=== PATIENT | female | born 1935 | race Caucasian/White ===

== ENCOUNTER 2017-02-16 20:05 | Inpatient (IN) | payer MEDICARE ==
[~2017-02-16] VITALS: Ht 154.9 cm; Wt 82.0 kg
[~2017-02-16 20:05] MED LIST: AMLO5TAB2 PO; ASPI-496 PO; ASPI-515 PO; ASPI325T17 PO; ATOR40TA78 PO; DIVA125C PO; DOCU-131 PO; FLUR15CA3 PO; HEPA50002 SQ; HYDR25TA11 PO; LABE5VIA13 IV; LISI-170 PO; LISI-466 PO; METO-93 PO; NITR0.4T SL; OMEP-110 PO; OMEP20TA62 PO; THYR30TA PO; TRAZ50TA18 PO
[2017-02-16] MEDS ORDERED: DILTIAZEM 125 MG in DEXTROSE 5% 100 ML IV SCH (20:18)
[2017-02-16] MEDS ORDERED: SODIUM CHLORIDE FLUSH 10ML SYR IVF ONE (20:30)
[2017-02-16 20:51] LABS: BASOPHILS # (AUTO) 0.08 x10^3/uL (0-0.1); BASOPHILS % (AUTO) 1 % (0-1); EOSINOPHILS # (AUTO) 0.17 x10^3/uL (0-0.4); EOSINOPHILS % (AUTO) 2 % (1-7); LYMPHOCYTES # (AUTO) 3.03 x10^3/uL (1-3.4); LYMPHOCYTES % (AUTO) 27 % (22-44); MD NO; MEAN CORPUSCULAR HEMOGLOBIN 31.7 pg (27.0-34.8); MEAN CORPUSCULAR HGB CONC 32.7 g/dL (32.4-35.8); MEAN PLATELET VOLUME 9.3 fL (7.4-10.4); MONOCYTES # (AUTO) 0.72 x10^3/uL (0.2-0.8); MONOCYTES % (AUTO) 7 % (2-9); NEUTROPHILS % (AUTO) 64 % (42-75); PLATELET COUNT 207 x10^3/uL (130-400); RED BLOOD COUNT 3.69 x10^6/uL (3.82-5.3); RED CELL DISTRIBUTION WIDTH 14.5 % (9.6-15.2)
[2017-02-16 20:59] LABS: INTERNATIONAL NORMALIZED RATIO 1.04 (0.93-1.1); PROTHROMBIN TIME 10.8 Seconds (9.6-11.5)
[2017-02-16] MEDS ORDERED: ENOXAPARIN 80 MG/0.8 ML SQ ONE (21:00)
[2017-02-16 21:02] LABS: ALBUMIN 3.2 g/dL (3.4-5.0); ANION GAP 6 mmol/L (5-15); CALCIUM 8.8 mg/dL (8.5-10.1); CHLORIDE 107 mmol/L (98-107); CREATININE 1.16 mg/dL (0.55-1.02)
[2017-02-16] MEDS ORDERED: FURO20TA3 PO (21:20)
[2017-02-16] MEDS ORDERED: METO50TA82 PO (21:20)
[2017-02-16] MEDS ORDERED: SODIUM CHLORIDE FLUSH 10ML SYR IVF PRN (21:30)
[2017-02-16] MEDS ORDERED: ACETAMINOPHEN 325 MG TABLET PO PRN (22:00)
[2017-02-16] MEDS ORDERED: ONDANSETRON 2MG/ML, 2ML IVPush PRN (22:00)
[2017-02-16] MEDS: ENOXAPARIN 80 MG/0.8 ML SQ SCH ×2 (22:00→23:53)
[2017-02-16] MEDS ORDERED: TEMAZEPAM 15 MG CAPSULE PO PRN (22:00)
[2017-02-16] MEDS ORDERED: MAGNESIUM SULFATE PMX 2GM/50ML 50 ML IV ONE (22:00)
[2017-02-16] MEDS ORDERED: DILTIAZEM CD 180 MG CAP.ER.24H PO SCH (22:00)
[2017-02-16] MEDS ORDERED: ENOXAPARIN 80 MG/0.8 ML ONE (22:37)
[2017-02-16 23:26] VITALS: BP 115/71
[2017-02-16] MEDS: TRAZODONE 50MG TABLET PO PRN (23:53)
[2017-02-17 00:47] VITALS: BP 134/77
[2017-02-17 06:05] LABS: BASOPHILS # (AUTO) 0.04 x10^3/uL (0-0.1); BASOPHILS % (AUTO) 0 % (0-1); EOSINOPHILS # (AUTO) 0.23 x10^3/uL (0-0.4); EOSINOPHILS % (AUTO) 2 % (1-7); LYMPHOCYTES # (AUTO) 3.06 x10^3/uL (1-3.4); LYMPHOCYTES % (AUTO) 32 % (22-44); MD NO; MEAN CORPUSCULAR HEMOGLOBIN 32.5 pg (27.0-34.8); MEAN CORPUSCULAR HGB CONC 33.5 g/dL (32.4-35.8); MEAN CORPUSCULAR VOLUME 96.8 fL (80-100); MEAN PLATELET VOLUME 9.9 fL (7.4-10.4); MONOCYTES % (AUTO) 7 % (2-9); NEUTROPHILS # (AUTO) 5.67 x10^3/uL (1.8-6.8); NEUTROPHILS % (AUTO) 59 % (42-75); PLATELET COUNT 177 x10^3/uL (130-400); RED BLOOD COUNT 3.31 x10^6/uL (3.82-5.3); RED CELL DISTRIBUTION WIDTH 14.3 % (9.6-15.2)
[2017-02-17 06:27] LABS: TROPONIN I < 0.015 ng/mL (0.000-0.045)
[2017-02-17 06:36] LABS: ANION GAP 7 mmol/L (5-15); CALCIUM 8.6 mg/dL (8.5-10.1); CHLORIDE 107 mmol/L (98-107)
[2017-02-17 06:40] LABS: CHOL/HDL RATIO 2.4; CHOLESTEROL, TOTAL 93 mg/dL (140-239); CREATININE 1.19 mg/dL (0.55-1.02); HDL CHOL % 42 % (28-40); HDL CHOLESTEROL (DIRECT) 39 mg/dL (40-60); LDL CHOLESTEROL,CALCULATED 29 mg/dL (54-169); LDL/HDL RATIO 0.7 (0.5-3.0); TRIGLYCERIDES 124 mg/dL (50-200); VLDL CHOLESTEROL 25 mg/dL (0-25)
[2017-02-17] MEDS: FUROSEMIDE 40 MG/4 ML IV SCH ×2 (08:52→18:38)
[2017-02-17] MEDS: METOPROLOL TARTRATE 25 MG TABLET PO SCH ×2 (08:52→18:38)
[2017-02-17] MEDS: DIVALPROEX 125 MG CAP.SPRINK PO SCH ×2 (08:56→22:32)
[2017-02-17] MEDS: THYROID 30 MG TABLET PO SCH (08:56)
[2017-02-17] MEDS ORDERED: FLU VACC QS2017-18 (36MOS+) UP/PF 0.5 ML IM-VACC ONE (09:00)
[2017-02-17] MEDS: DILTIAZEM 125 MG in SODIUM CHLORIDE 0.9% 100 ML IV SCH ×2 (09:18→19:55)
[2017-02-17 09:22] VITALS: BP 135/71
[2017-02-17] MEDS: ALBUTEROL SULFATE 2.5 MG/3 ML NPPB PRN ×2 (10:41→20:47)
[2017-02-17 15:27] VITALS: BP 99/65
[2017-02-17] MEDS ORDERED: OMNIPAQUE 350 MG/ML, 100ML BOTTLE ONE (18:10)
[2017-02-17 18:54] VITALS: BP 122/83
[2017-02-17 22:31] VITALS: BP 126/59
[2017-02-17] MEDS: TRAZODONE 50MG TABLET PO PRN (22:32)
[2017-02-18 00:31] VITALS: BP 117/74
[2017-02-18] MEDS: ENOXAPARIN 100 MG/ML SQ SCH ×2 (00:47→23:42)
[2017-02-18] MEDS: METOPROLOL TARTRATE 25 MG TABLET PO SCH ×2 (06:22→18:34)
[2017-02-18] MEDS: FUROSEMIDE 40 MG/4 ML IV SCH ×3 (07:26→21:15)
[2017-02-18] MEDS: DIVALPROEX 125 MG CAP.SPRINK PO SCH ×2 (07:26→21:08)
[2017-02-18] MEDS: THYROID 30 MG TABLET PO SCH (07:27)
[2017-02-18 07:34] VITALS: BP 109/76
[2017-02-18] MEDS: DILTIAZEM 125 MG in SODIUM CHLORIDE 0.9% 100 ML IV SCH ×3 (08:20→23:37)
[2017-02-18 08:30] VITALS: BP 111/79
[2017-02-18] MEDS ORDERED: MAALOX/HYOSCYAMINE/LIDOCAINE 45 ML BTL PO ONE (09:30)
[2017-02-18 09:59] LABS: ANION GAP 8 mmol/L (5-15); CALCIUM 8.4 mg/dL (8.5-10.1); CHLORIDE 103 mmol/L (98-107); CREATININE 1.36 mg/dL (0.55-1.02)
[2017-02-18 10:00] LABS: TROPONIN I < 0.015 ng/mL (0.000-0.045)
[2017-02-18] MEDS ORDERED: POLYETHYLENE GLYCOL 17 GM PACKET ONE (11:18)
[2017-02-18] MEDS ORDERED: SENNA/DOCUSATE TABLET ONE (11:19)
[2017-02-18] MEDS: SENNA/DOCUSATE TABLET PO SCH (11:22)
[2017-02-18] MEDS ORDERED: POLYETHYLENE GLYCOL 17 GM PACKET PO PRN (11:30)
[2017-02-18] MEDS ORDERED: BISACODYL 10 MG SUPP PR PRN (11:30)
[2017-02-18 12:12] LABS: ALANINE AMINOTRANSFERASE 19 U/L (12-78); ALBUMIN 3.2 g/dL (3.4-5.0)
[2017-02-18 12:14] LABS: ALKALINE PHOSPHATASE 88 U/L (45-117); BILIRUBIN,TOTAL 0.4 mg/dL (0.2-1.0)
[2017-02-18 12:18] LABS: BILIRUBIN, DIRECT < 0.1 mg/dL (0.1-0.2); BILIRUBIN,INDIRECT 0.3 mg/dL (0.0-2.0)
[2017-02-18 14:07] VITALS: BP 108/64
[2017-02-18 19:05] VITALS: BP 114/65
[2017-02-18] MEDS: FAMOTIDINE 20 MG TABLET PO SCH (21:08)
[2017-02-18] MEDS: TRAZODONE 50MG TABLET PO PRN (21:24)
[2017-02-19 03:55] VITALS: BP 120/81
[2017-02-19 06:18] LABS: BASOPHILS # (AUTO) 0.04 x10^3/uL (0-0.1); BASOPHILS % (AUTO) 0 % (0-1); EOSINOPHILS # (AUTO) 0.18 x10^3/uL (0-0.4); EOSINOPHILS % (AUTO) 2 % (1-7); LYMPHOCYTES # (AUTO) 2.59 x10^3/uL (1-3.4); LYMPHOCYTES % (AUTO) 27 % (22-44); MD NO; MEAN CORPUSCULAR HEMOGLOBIN 32.4 pg (27.0-34.8); MEAN CORPUSCULAR HGB CONC 33.3 g/dL (32.4-35.8); MEAN CORPUSCULAR VOLUME 97.2 fL (80-100); MEAN PLATELET VOLUME 9.5 fL (7.4-10.4); MONOCYTES # (AUTO) 0.65 x10^3/uL (0.2-0.8); MONOCYTES % (AUTO) 7 % (2-9); NEUTROPHILS # (AUTO) 6.09 x10^3/uL (1.8-6.8); NEUTROPHILS % (AUTO) 64 % (42-75); PLATELET COUNT 196 x10^3/uL (130-400); RED BLOOD COUNT 3.55 x10^6/uL (3.82-5.3); RED CELL DISTRIBUTION WIDTH 14.2 % (9.6-15.2)
[2017-02-19 06:19] LABS: ALBUMIN 3.1 g/dL (3.4-5.0); ANION GAP 6 mmol/L (5-15); CALCIUM 8.4 mg/dL (8.5-10.1); CHLORIDE 102 mmol/L (98-107)
[2017-02-19 06:22] VITALS: BP 137/75
[2017-02-19 06:22] LABS: ALANINE AMINOTRANSFERASE 13 U/L (12-78); ALKALINE PHOSPHATASE 84 U/L (45-117); BILIRUBIN,TOTAL 0.7 mg/dL (0.2-1.0); CREATININE 1.39 mg/dL (0.55-1.02); TOTAL PROTEIN 6.9 g/dL (6.4-8.2)
[2017-02-19] MEDS: METOPROLOL TARTRATE 25 MG TABLET PO SCH ×3 (06:25→20:30)
[2017-02-19] MEDS: FUROSEMIDE 40 MG/4 ML IV SCH ×3 (06:26→20:29)
[2017-02-19] MEDS: THYROID 30 MG TABLET PO SCH (07:33)
[2017-02-19] MEDS: FAMOTIDINE 20 MG TABLET PO SCH ×2 (07:33→20:30)
[2017-02-19] MEDS: DIVALPROEX 125 MG CAP.SPRINK PO SCH ×2 (07:33→20:30)
[2017-02-19] MEDS: SENNA/DOCUSATE TABLET PO SCH (07:33)
[2017-02-19 08:10] VITALS: BP 120/74
[2017-02-19] MEDS: DILTIAZEM 125 MG in SODIUM CHLORIDE 0.9% 100 ML IV SCH (12:54)
[2017-02-19 13:43] VITALS: BP 146/79
[2017-02-19] MEDS: ALBUTEROL SULFATE 2.5 MG/3 ML NPPB PRN (14:00)
[2017-02-19] MEDS: SUCRALFATE 1 GM/10 ML UDC PO SCH ×2 (17:30→20:30)
[2017-02-19] MEDS ORDERED: MAALOX/HYOSCYAMINE/LIDOCAINE 45 ML BTL PO PRN (17:30)
[2017-02-19 19:50] VITALS: BP 118/78
[2017-02-19] MEDS: TRAZODONE 50MG TABLET PO PRN (20:30)
[2017-02-20] MEDS: ENOXAPARIN 100 MG/ML SQ SCH (00:37)
[2017-02-20] MEDS: DILTIAZEM 125 MG in SODIUM CHLORIDE 0.9% 100 ML IV SCH (00:38)
[2017-02-20 06:20] LABS: BASOPHILS # (AUTO) 0.01 x10^3/uL (0-0.1); BASOPHILS % (AUTO) 0 % (0-1); EOSINOPHILS % (AUTO) 0 % (1-7); LYMPHOCYTES # (AUTO) 1.05 x10^3/uL (1-3.4); LYMPHOCYTES % (AUTO) 12 % (22-44); MD NO; MEAN CORPUSCULAR HEMOGLOBIN 32.4 pg (27.0-34.8); MEAN CORPUSCULAR HGB CONC 33.1 g/dL (32.4-35.8); MEAN CORPUSCULAR VOLUME 97.7 fL (80-100); MEAN PLATELET VOLUME 9.4 fL (7.4-10.4); MONOCYTES # (AUTO) 0.25 x10^3/uL (0.2-0.8); MONOCYTES % (AUTO) 3 % (2-9); NEUTROPHILS # (AUTO) 7.21 x10^3/uL (1.8-6.8); NEUTROPHILS % (AUTO) 85 % (42-75); PLATELET COUNT 191 x10^3/uL (130-400); RED BLOOD COUNT 3.49 x10^6/uL (3.82-5.3); RED CELL DISTRIBUTION WIDTH 14.3 % (9.6-15.2)
[2017-02-20 06:27] LABS: CHLORIDE 103 mmol/L (98-107)
[2017-02-20 06:33] LABS: ALANINE AMINOTRANSFERASE 13 U/L (12-78); ALKALINE PHOSPHATASE 84 U/L (45-117); ANION GAP 7 mmol/L (5-15); BILIRUBIN,TOTAL 0.3 mg/dL (0.2-1.0); CALCIUM 8.4 mg/dL (8.5-10.1); CREATININE 1.37 mg/dL (0.55-1.02); TOTAL PROTEIN 6.8 g/dL (6.4-8.2)
[2017-02-20] MEDS: FUROSEMIDE 40 MG/4 ML IV SCH ×3 (06:39→21:33)
[2017-02-20 08:32] VITALS: BP 119/68
[2017-02-20] MEDS: DIGOXIN 0.125 MG TABLET PO SCH (08:45)
[2017-02-20] MEDS: APIXABAN 5 MG TABLET PO SCH ×2 (08:45→21:22)
[2017-02-20] MEDS: SUCRALFATE 1 GM/10 ML UDC PO SCH ×4 (08:46→21:41)
[2017-02-20] MEDS: FAMOTIDINE 20 MG TABLET PO SCH ×2 (08:48→21:22)
[2017-02-20] MEDS: THYROID 30 MG TABLET PO SCH (08:48)
[2017-02-20] MEDS: DIVALPROEX 125 MG CAP.SPRINK PO SCH ×2 (08:48→21:22)
[2017-02-20] MEDS: SENNA/DOCUSATE TABLET PO SCH (08:48)
[2017-02-20] MEDS: METOPROLOL TARTRATE 25 MG TABLET PO SCH ×3 (08:49→21:23)
[2017-02-20 13:40] VITALS: BP 120/77
[2017-02-20] MEDS: ALBUTEROL SULFATE 2.5 MG/3 ML NPPB PRN (19:40)
[2017-02-20 21:18] VITALS: BP 144/75
[2017-02-20] MEDS: VERAPAMIL 2.5 MG/ML, 2ML IVPush PRN (21:23)
[2017-02-21 02:00] VITALS: BP 131/71
[2017-02-21] MEDS: FUROSEMIDE 40 MG/4 ML IV SCH ×3 (05:22→22:54)
[2017-02-21] MEDS: ALBUTEROL SULFATE 2.5 MG/3 ML NPPB PRN ×3 (05:36→23:28)
[2017-02-21 06:08] LABS: ANION GAP 7 mmol/L (5-15); CALCIUM 8.8 mg/dL (8.5-10.1); CHLORIDE 104 mmol/L (98-107); CREATININE 1.22 mg/dL (0.55-1.02)
[2017-02-21 06:17] LABS: BASOPHILS # (AUTO) 0.04 x10^3/uL (0-0.1); BASOPHILS % (AUTO) 0 % (0-1); EOSINOPHILS # (AUTO) 0.02 x10^3/uL (0-0.4); EOSINOPHILS % (AUTO) 0 % (1-7); LYMPHOCYTES # (AUTO) 2.78 x10^3/uL (1-3.4); LYMPHOCYTES % (AUTO) 19 % (22-44); MD NO; MEAN CORPUSCULAR HEMOGLOBIN 32.3 pg (27.0-34.8); MEAN CORPUSCULAR HGB CONC 33.3 g/dL (32.4-35.8); MEAN CORPUSCULAR VOLUME 97.1 fL (80-100); MEAN PLATELET VOLUME 9.4 fL (7.4-10.4); MONOCYTES # (AUTO) 0.85 x10^3/uL (0.2-0.8); MONOCYTES % (AUTO) 6 % (2-9); NEUTROPHILS # (AUTO) 10.96 x10^3/uL (1.8-6.8); NEUTROPHILS % (AUTO) 75 % (42-75); PLATELET COUNT 207 x10^3/uL (130-400); RED BLOOD COUNT 3.58 x10^6/uL (3.82-5.3); RED CELL DISTRIBUTION WIDTH 14.2 % (9.6-15.2)
[2017-02-21] MEDS: SENNA/DOCUSATE TABLET PO SCH (07:39)
[2017-02-21 08:11] VITALS: BP 145/86
[2017-02-21] MEDS: DIVALPROEX 125 MG CAP.SPRINK PO SCH ×2 (08:25→22:56)
[2017-02-21] MEDS: METOPROLOL TARTRATE 25 MG TABLET PO SCH (08:25)
[2017-02-21] MEDS: APIXABAN 5 MG TABLET PO SCH ×2 (08:25→22:55)
[2017-02-21] MEDS: THYROID 30 MG TABLET PO SCH (08:25)
[2017-02-21] MEDS: SUCRALFATE 1 GM/10 ML UDC PO SCH ×4 (08:25→22:55)
[2017-02-21] MEDS: DIGOXIN 0.125 MG TABLET PO SCH (08:26)
[2017-02-21] MEDS: FAMOTIDINE 20 MG TABLET PO SCH ×2 (08:26→22:55)
[2017-02-21] MEDS: VERAPAMIL 2.5 MG/ML, 2ML IVPush PRN ×2 (08:26→18:20)
[2017-02-21] MEDS ORDERED: DIGOXIN 0.25 MG/ML, 2ML IVPush ONE (09:00)
[2017-02-21 09:35] VITALS: BP 123/72
[2017-02-21 12:28] VITALS: BP 139/84
[2017-02-21] MEDS: VERAPAMIL 40MG TABLET PO SCH ×2 (15:45→21:00)
[2017-02-21] MEDS ORDERED: METOPROLOL TARTRATE 25 MG TABLET PO SCH (21:00)
[2017-02-21 21:27] VITALS: BP 126/75
[2017-02-21] MEDS ORDERED: VERAPAMIL 80MG TABLET PO SCH (23:07)
[2017-02-22 01:38] VITALS: BP 130/76
[2017-02-22] MEDS: FUROSEMIDE 40 MG/4 ML IV SCH ×3 (06:06→22:26)
[2017-02-22] MEDS: SUCRALFATE 1 GM/10 ML UDC PO SCH ×4 (06:10→22:24)
[2017-02-22] MEDS: ALBUTEROL SULFATE 2.5 MG/3 ML NPPB PRN (06:25)
[2017-02-22 07:43] VITALS: BP 160/98
[2017-02-22] MEDS: THYROID 30 MG TABLET PO SCH (09:51)
[2017-02-22] MEDS: METOPROLOL TARTRATE 50 MG TABLET PO SCH ×2 (09:51→17:56)
[2017-02-22] MEDS: DIVALPROEX 125 MG CAP.SPRINK PO SCH ×2 (09:52→22:25)
[2017-02-22] MEDS: DIGOXIN 0.125 MG TABLET PO SCH (09:52)
[2017-02-22] MEDS: APIXABAN 5 MG TABLET PO SCH ×2 (09:52→22:25)
[2017-02-22] MEDS: FAMOTIDINE 20 MG TABLET PO SCH ×2 (09:52→22:25)
[2017-02-22] MEDS: SENNA/DOCUSATE TABLET PO SCH (09:52)
[2017-02-22] MEDS ORDERED: VERAPAMIL 40MG TABLET PO SCH (11:00)
[2017-02-22] MEDS: VERAPAMIL 80MG TABLET PO SCH ×3 (12:13→22:25)
[2017-02-22 12:58] VITALS: BP 135/85
[2017-02-22 22:23] VITALS: BP 131/84
[2017-02-23 02:12] VITALS: BP 144/91
[2017-02-23 06:05] VITALS: BP 142/79
[2017-02-23] MEDS: VERAPAMIL 80MG TABLET PO SCH ×4 (06:05→21:02)
[2017-02-23] MEDS: METOPROLOL TARTRATE 50 MG TABLET PO SCH ×2 (06:06→16:34)
[2017-02-23] MEDS: FUROSEMIDE 40 MG/4 ML IV SCH ×3 (06:06→21:13)
[2017-02-23] MEDS ORDERED: ALBUTEROL/IPRATROPIUM 2.5MG/0.5MG, 3 ML ONE (06:33)
[2017-02-23] MEDS: ALBUTEROL SULFATE 2.5 MG/3 ML NPPB PRN ×2 (06:38→21:21)
[2017-02-23 07:13] VITALS: BP 116/73
[2017-02-23] MEDS: SUCRALFATE 1 GM/10 ML UDC PO SCH ×4 (08:11→21:13)
[2017-02-23] MEDS: DIVALPROEX 125 MG CAP.SPRINK PO SCH ×2 (08:13→21:01)
[2017-02-23] MEDS: APIXABAN 5 MG TABLET PO SCH ×2 (08:13→21:01)
[2017-02-23] MEDS: FAMOTIDINE 20 MG TABLET PO SCH ×2 (08:13→21:01)
[2017-02-23] MEDS: SENNA/DOCUSATE TABLET PO SCH (08:13)
[2017-02-23] MEDS: DIGOXIN 0.125 MG TABLET PO SCH (08:13)
[2017-02-23] MEDS: THYROID 30 MG TABLET PO SCH (08:13)
[2017-02-23 09:25] LABS: TROPONIN I < 0.015 ng/mL (0.000-0.045)
[2017-02-23 13:45] VITALS: BP 119/68
[2017-02-23 18:45] VITALS: BP 135/85
[2017-02-23] MEDS: ATORVASTATIN 40 MG TABLET PO SCH (21:01)
[2017-02-24 01:04] VITALS: BP 129/85
[2017-02-24] MEDS: FUROSEMIDE 40 MG/4 ML IV SCH (06:35)
[2017-02-24] MEDS: VERAPAMIL 80MG TABLET PO SCH (06:35)
[2017-02-24] MEDS: METOPROLOL TARTRATE 50 MG TABLET PO SCH ×2 (06:35→16:38)
[2017-02-24 06:59] LABS: BASOPHILS # (AUTO) 0.05 x10^3/uL (0-0.1); BASOPHILS % (AUTO) 0 % (0-1); EOSINOPHILS # (AUTO) 0.14 x10^3/uL (0-0.4); EOSINOPHILS % (AUTO) 1 % (1-7); LYMPHOCYTES # (AUTO) 4.66 x10^3/uL (1-3.4); LYMPHOCYTES % (AUTO) 31 % (22-44); MD NO; MEAN CORPUSCULAR HEMOGLOBIN 32.2 pg (27.0-34.8); MEAN CORPUSCULAR HGB CONC 33.2 g/dL (32.4-35.8); MEAN PLATELET VOLUME 8.7 fL (7.4-10.4); MONOCYTES # (AUTO) 0.94 x10^3/uL (0.2-0.8); MONOCYTES % (AUTO) 6 % (2-9); NEUTROPHILS % (AUTO) 62 % (42-75); PLATELET COUNT 238 x10^3/uL (130-400); RED BLOOD COUNT 4.21 x10^6/uL (3.82-5.3); RED CELL DISTRIBUTION WIDTH 13.4 % (9.6-15.2)
[2017-02-24 07:07] LABS: ANION GAP 9 mmol/L (5-15); CALCIUM 8.5 mg/dL (8.5-10.1); CHLORIDE 98 mmol/L (98-107); CREATININE 1.31 mg/dL (0.55-1.02)
[2017-02-24 07:59] VITALS: BP 124/82
[2017-02-24] MEDS: THYROID 30 MG TABLET PO SCH (09:43)
[2017-02-24] MEDS: SUCRALFATE 1 GM/10 ML UDC PO SCH ×4 (09:43→20:03)
[2017-02-24] MEDS: DIVALPROEX 125 MG CAP.SPRINK PO SCH ×2 (09:44→20:04)
[2017-02-24] MEDS: FAMOTIDINE 20 MG TABLET PO SCH ×2 (09:44→20:04)
[2017-02-24] MEDS: DIGOXIN 0.125 MG TABLET PO SCH (09:44)
[2017-02-24] MEDS: SENNA/DOCUSATE TABLET PO SCH (09:44)
[2017-02-24] MEDS: APIXABAN 5 MG TABLET PO SCH ×2 (09:44→20:03)
[2017-02-24] MEDS: ALBUTEROL SULFATE 2.5 MG/3 ML NPPB PRN ×2 (10:01→23:55)
[2017-02-24] MEDS ORDERED: VERAPAMIL 80MG TABLET ONE ×2 (16:30→20:10)
[2017-02-24] MEDS: POTASSIUM CHLORIDE 20 MEQ TAB.ER.PRT PO SCH (16:35)
[2017-02-24] MEDS: VERAPAMIL 40MG TABLET PO SCH ×2 (16:38→20:15)
[2017-02-24 16:51] VITALS: BP 112/71
[2017-02-24 18:53] LABS: MICROSCOPIC AUTO
[2017-02-24] MEDS: ATORVASTATIN 40 MG TABLET PO SCH (20:03)
[2017-02-24 20:16] VITALS: BP 137/66
[2017-02-25 02:08] VITALS: BP 124/75
[2017-02-25 05:07] LABS: BASOPHILS # (AUTO) 0.05 x10^3/uL (0-0.1); BASOPHILS % (AUTO) 0 % (0-1); EOSINOPHILS # (AUTO) 0.16 x10^3/uL (0-0.4); EOSINOPHILS % (AUTO) 1 % (1-7); LYMPHOCYTES # (AUTO) 4.36 x10^3/uL (1-3.4); LYMPHOCYTES % (AUTO) 28 % (22-44); MD NO; MEAN CORPUSCULAR HEMOGLOBIN 31.9 pg (27.0-34.8); MEAN CORPUSCULAR HGB CONC 33.1 g/dL (32.4-35.8); MEAN CORPUSCULAR VOLUME 96.6 fL (80-100); MONOCYTES # (AUTO) 1.06 x10^3/uL (0.2-0.8); MONOCYTES % (AUTO) 7 % (2-9); NEUTROPHILS # (AUTO) 9.79 x10^3/uL (1.8-6.8); NEUTROPHILS % (AUTO) 64 % (42-75); PLATELET COUNT 259 x10^3/uL (130-400); RED BLOOD COUNT 4.46 x10^6/uL (3.82-5.3)
[2017-02-25 05:14] LABS: ALBUMIN 3.2 g/dL (3.4-5.0); ANION GAP 9 mmol/L (5-15); CALCIUM 9.2 mg/dL (8.5-10.1); CHLORIDE 101 mmol/L (98-107); CREATININE 1.41 mg/dL (0.55-1.02)
[2017-02-25] MEDS: METOPROLOL TARTRATE 50 MG TABLET PO SCH ×2 (06:09→16:18)
[2017-02-25 07:22] VITALS: BP 137/77
[2017-02-25] MEDS: THYROID 30 MG TABLET PO SCH (08:43)
[2017-02-25] MEDS: POTASSIUM CHLORIDE 20 MEQ TAB.ER.PRT PO SCH ×2 (08:43→16:17)
[2017-02-25] MEDS: DIVALPROEX 125 MG CAP.SPRINK PO SCH ×2 (08:43→20:28)
[2017-02-25] MEDS: APIXABAN 5 MG TABLET PO SCH ×2 (08:43→20:29)
[2017-02-25] MEDS: SENNA/DOCUSATE TABLET PO SCH (08:44)
[2017-02-25] MEDS: SUCRALFATE 1 GM/10 ML UDC PO SCH ×4 (08:44→20:29)
[2017-02-25] MEDS: FAMOTIDINE 20 MG TABLET PO SCH ×2 (08:44→20:28)
[2017-02-25] MEDS ORDERED: ACETAMINOPHEN 325 MG TABLET PO PRN (11:00)
[2017-02-25] MEDS ORDERED: VERAPAMIL 80MG TABLET ONE ×3 (11:39→20:25)
[2017-02-25] MEDS: VERAPAMIL 40MG TABLET PO SCH ×3 (11:47→20:29)
[2017-02-25 13:46] VITALS: BP 113/64
[2017-02-25 20:21] VITALS: BP 122/65
[2017-02-25] MEDS: ATORVASTATIN 40 MG TABLET PO SCH (20:28)
[2017-02-25] MEDS: ALBUTEROL SULFATE 2.5 MG/3 ML NPPB PRN (21:04)
[2017-02-26 01:07] VITALS: BP 145/70
[2017-02-26 07:03] VITALS: BP 140/73
[2017-02-26] MEDS: SENNA/DOCUSATE TABLET PO SCH (07:41)
[2017-02-26] MEDS: CEFTRIAXONE PMX 1GM/50ML 50 ML IV SCH (07:41)
[2017-02-26] MEDS: METOPROLOL TARTRATE 50 MG TABLET PO SCH ×2 (07:41→16:27)
[2017-02-26] MEDS: THYROID 30 MG TABLET PO SCH (07:41)
[2017-02-26] MEDS: POTASSIUM CHLORIDE 20 MEQ TAB.ER.PRT PO SCH ×2 (07:41→16:26)
[2017-02-26] MEDS: FAMOTIDINE 20 MG TABLET PO SCH ×2 (07:41→20:46)
[2017-02-26] MEDS: SUCRALFATE 1 GM/10 ML UDC PO SCH ×4 (07:41→20:45)
[2017-02-26] MEDS: DIVALPROEX 125 MG CAP.SPRINK PO SCH ×2 (07:42→20:46)
[2017-02-26] MEDS: APIXABAN 5 MG TABLET PO SCH ×2 (07:42→20:46)
[2017-02-26] MEDS ORDERED: VERAPAMIL 80MG TABLET ONE (07:43)
[2017-02-26] MEDS: VERAPAMIL 40MG TABLET PO SCH ×4 (07:44→20:45)
[2017-02-26 13:21] VITALS: BP 138/76
[2017-02-26 18:31] LABS: MICROSCOPIC AUTO
[2017-02-26 18:44] VITALS: BP 137/63
[2017-02-26 18:49] LABS: CULTURE INDICATED? YES
[2017-02-26] MEDS: ATORVASTATIN 40 MG TABLET PO SCH (20:46)
[2017-02-26] MEDS: ALBUTEROL SULFATE 2.5 MG/3 ML NPPB PRN (21:02)
[2017-02-27 01:24] VITALS: BP 108/77
[2017-02-27] MEDS: CEFTRIAXONE PMX 1GM/50ML 50 ML IV SCH (05:32)
[2017-02-27] MEDS: METOPROLOL TARTRATE 50 MG TABLET PO SCH (05:32)
[2017-02-27] MEDS: VERAPAMIL 40MG TABLET PO SCH ×2 (05:32→12:34)
[2017-02-27] MEDS: SUCRALFATE 1 GM/10 ML UDC PO SCH ×2 (05:34→12:34)
[2017-02-27 05:43] LABS: BASOPHILS # (AUTO) 0.05 x10^3/uL (0-0.1); BASOPHILS % (AUTO) 0 % (0-1); EOSINOPHILS # (AUTO) 0.24 x10^3/uL (0-0.4); EOSINOPHILS % (AUTO) 2 % (1-7); LYMPHOCYTES # (AUTO) 4.08 x10^3/uL (1-3.4); LYMPHOCYTES % (AUTO) 29 % (22-44); MD NO; MEAN CORPUSCULAR HEMOGLOBIN 31.7 pg (27.0-34.8); MEAN CORPUSCULAR HGB CONC 32.5 g/dL (32.4-35.8); MEAN CORPUSCULAR VOLUME 97.5 fL (80-100); MEAN PLATELET VOLUME 9.5 fL (7.4-10.4); MONOCYTES # (AUTO) 1.07 x10^3/uL (0.2-0.8); MONOCYTES % (AUTO) 8 % (2-9); NEUTROPHILS # (AUTO) 8.42 x10^3/uL (1.8-6.8); NEUTROPHILS % (AUTO) 61 % (42-75); PLATELET COUNT 206 x10^3/uL (130-400); RED BLOOD COUNT 4.09 x10^6/uL (3.82-5.3)
[2017-02-27 05:44] LABS: CHLORIDE 109 mmol/L (98-107)
[2017-02-27 05:59] LABS: ALANINE AMINOTRANSFERASE 10 U/L (12-78); ALBUMIN 2.9 g/dL (3.4-5.0); ALKALINE PHOSPHATASE 93 U/L (45-117); ANION GAP 5 mmol/L (5-15); BILIRUBIN,TOTAL 0.2 mg/dL (0.2-1.0); CALCIUM 8.5 mg/dL (8.5-10.1); CREATININE 1.26 mg/dL (0.55-1.02); TOTAL PROTEIN 6.4 g/dL (6.4-8.2)
[2017-02-27 08:07] VITALS: BP 102/61
[2017-02-27] MEDS: THYROID 30 MG TABLET PO SCH (08:52)
[2017-02-27] MEDS: APIXABAN 5 MG TABLET PO SCH (08:52)
[2017-02-27] MEDS: POTASSIUM CHLORIDE 20 MEQ TAB.ER.PRT PO SCH (08:52)
[2017-02-27] MEDS: DIVALPROEX 125 MG CAP.SPRINK PO SCH (08:53)
[2017-02-27] MEDS: FAMOTIDINE 20 MG TABLET PO SCH (08:54)
[2017-02-27] MEDS: SENNA/DOCUSATE TABLET PO SCH (08:54)
[2017-02-27] MEDS ORDERED: DOXYCYCLINE 100MG TABLET PO SCH (09:00)
[2017-02-27] MEDS ORDERED: FLUTICASONE/VILANTEROL 200-25MCG/INH INH SCH (09:30)
[2017-02-27] MEDS ORDERED: ACET325T14 PO (10:10)
[2017-02-27] MEDS ORDERED: FLUT1BLS INH (10:10)
[2017-02-27] MEDS ORDERED: DOXY100T10 PO (10:10)
[2017-02-27] MEDS ORDERED: METO50TA82 PO (10:10)
[2017-02-27] MEDS ORDERED: FURO-93 PO (10:10)
[2017-02-27] MEDS ORDERED: ALBU2.5V NPPB (10:10)
[2017-02-27] MEDS ORDERED: APIX5TAB PO (10:10)
[2017-02-27] MEDS ORDERED: FAMO20TA7 PO (10:10)
[2017-02-27] MEDS ORDERED: CEFD300C37 PO (10:10)
[2017-02-27 14:45] VITALS: BP 144/75
== END 2017-02-27 15:30 | DRG 682 ==
LOC: ED 21:26 → SUATTDRO 21:39 → EDIP 22:00 → 5SO 22:46
PROVIDERS: ADMIT Internal Medicine; ATTEND Internal Medicine
PROC: 4A09XMZ Measurement of Respiratory Total Activity, External Approach (ICD-10-PCS; principal; 2017-02-22)
DX: N17.0 Acute kidney failure with tubular necrosis (principal); J96.21 Acute and chronic respiratory failure with hypoxia; E43 Unspecified severe protein-calorie malnutrition; I50.43 Acute on chronic combined systolic (congestive) and diastolic (congestive) heart failure; E87.3 Alkalosis; D68.59 Other primary thrombophilia; E44.1 Mild protein-calorie malnutrition; I48.91 Unspecified atrial fibrillation; I27.20 Pulmonary hypertension, unspecified; I13.0 Hypertensive heart and chronic kidney disease with heart failure and stage 1 through stage 4 chronic kidney disease, or unspecified chronic kidney disease; I48.92 Unspecified atrial flutter; I07.1 Rheumatic tricuspid insufficiency; D64.9 Anemia, unspecified; D72.829 Elevated white blood cell count, unspecified; E03.9 Hypothyroidism, unspecified; Z68.34 Body mass index [BMI] 34.0-34.9, adult; E78.5 Hyperlipidemia, unspecified; E87.6 Hypokalemia; F32.9 Major depressive disorder, single episode, unspecified; F41.9 Anxiety disorder, unspecified; G47.00 Insomnia, unspecified; I34.0 Nonrheumatic mitral (valve) insufficiency; I35.8 Other nonrheumatic aortic valve disorders; J45.909 Unspecified asthma, uncomplicated; J98.4 Other disorders of lung; K21.9 Gastro-esophageal reflux disease without esophagitis; Z66 Do not resuscitate; N18.9 Chronic kidney disease, unspecified; K59.00 Constipation, unspecified; Z79.01 Long term (current) use of anticoagulants; Z87.891 Personal history of nicotine dependence; Z90.13 Acquired absence of bilateral breasts and nipples; Z90.710 Acquired absence of both cervix and uterus; Z99.81 Dependence on supplemental oxygen; Z23 Encounter for immunization
CPT/HCPCS: 36415; 51702; 71045; 71250; 71275; 80048; 80053; 80061; 80076; 80162; 81001; 82040; 83735; 83880; 84443; 84484; 85025; 85610; 85730; 87040; 87086; 90686; 93005; 93306; 94060; 94640; 96365; 96366; 96367; J0696; J1650; J1940; J7613; Q9967; J1160; J3475; J7512

== ENCOUNTER 2017-08-04 15:15 | Inpatient (IN) | payer MEDICARE, MEDICAID ==
[~2017-08-04] VITALS: Ht 153.2 cm; Wt 85.8 kg
[~2017-08-04 15:15] MED LIST changes: +ACET325T14 PO; +ALBU2.5V NPPB; +APIX5TAB PO; +CEFD300C37 PO; +DOXY100T10 PO; +FAMO20TA7 PO; +FLUT1BLS INH; +FURO-93 PO; +FURO20TA3 PO; +METO50TA82 PO
[2017-08-04] MEDS ORDERED: HEPARIN 5,000 UNITS/ML, 1ML SQ SCH (16:30)
[2017-08-04] MEDS ORDERED: VANCOMYCIN PER PHARMACY MC PRN (16:30)
[2017-08-04] MEDS ORDERED: ACETAMINOPHEN 325 MG TABLET PO PRN ×2 (16:30→20:00)
[2017-08-04] MEDS ORDERED: POLYETHYLENE GLYCOL 17 GM PACKET PO PRN (16:30)
[2017-08-04] MEDS ORDERED: DOCUSATE 100 MG CAPSULE PO PRN ×2 (16:30→20:00)
[2017-08-04] MEDS ORDERED: LABETALOL 5MG/ML, 20ML IVPush PRN (16:30)
[2017-08-04] MEDS ORDERED: PLEASE ENTER HEIGHT AND WEIGHT MC SCH ×2 (18:30)
[2017-08-04 19:00] VITALS: BP 166/72
[2017-08-04] MEDS ORDERED: PHARMACOKINETIC MONITORING MC PRN (19:00)
[2017-08-04 19:19] LABS: BASOPHILS # (AUTO) 0.03 x10^3/uL (0-0.1); BASOPHILS % (AUTO) 0 % (0-1); EOSINOPHILS # (AUTO) 0.01 x10^3/uL (0-0.4); EOSINOPHILS % (AUTO) 0 % (1-7); LYMPHOCYTES # (AUTO) 1.39 x10^3/uL (1-3.4); LYMPHOCYTES % (AUTO) 10 % (22-44); MD NO; MEAN CORPUSCULAR HEMOGLOBIN 30.2 pg (27.0-34.8); MEAN CORPUSCULAR HGB CONC 32.9 g/dL (32.4-35.8); MEAN CORPUSCULAR VOLUME 91.9 fL (80-100); MEAN PLATELET VOLUME 8.2 fL (7.4-10.4); MONOCYTES # (AUTO) 0.49 x10^3/uL (0.2-0.8); MONOCYTES % (AUTO) 4 % (2-9); NEUTROPHILS # (AUTO) 12.03 x10^3/uL (1.8-6.8); NEUTROPHILS % (AUTO) 86 % (42-75); PLATELET COUNT 304 x10^3/uL (130-400); RED BLOOD COUNT 4.22 x10^6/uL (3.82-5.3); RED CELL DISTRIBUTION WIDTH 17.9 % (9.6-15.2)
[2017-08-04 19:22] LABS: MICROSCOPIC AUTO
[2017-08-04 19:31] LABS: CULTURE INDICATED? YES
[2017-08-04 19:32] LABS: ANION GAP 5 mmol/L (5-15); CHLORIDE 96 mmol/L (98-107); CREATININE 1.35 mg/dL (0.55-1.02)
[2017-08-04 19:36] LABS: TROPONIN I < 0.015 ng/mL (0.000-0.045)
[2017-08-04] MEDS ORDERED: ALBUTEROL SULFATE 2.5 MG/3 ML ONE (19:36)
[2017-08-04] MEDS: PIPERACILLIN/TAZO/PMX 3.375GM 50 ML IV SCH (19:42)
[2017-08-04] MEDS: ALBUTEROL SULFATE 2.5 MG/3 ML NPPB SCH (19:52)
[2017-08-04] MEDS ORDERED: TRAZODONE 50MG TABLET PO PRN (20:00)
[2017-08-04] MEDS ORDERED: VANCOMYCIN 1,400 MG in SODIUM CHLORIDE 0.9% 250 ML IV ONE (20:00)
[2017-08-04] MEDS ORDERED: ALBUTEROL SULFATE 2.5 MG/3 ML NPPB PRN (20:00)
[2017-08-04] MEDS: NITROGLYCERIN 0.4 MG BOTTLE (25 TABS) SL SCH (20:00)
[2017-08-04] MEDS: DILTIAZEM 125 MG in SODIUM CHLORIDE 0.9% 100 ML IV PRN (20:05)
[2017-08-04] MEDS ORDERED: FUROSEMIDE 20 MG/2 ML IV ONE (21:30)
[2017-08-04] MEDS ORDERED: FUROSEMIDE 20 MG/2 ML ONE (21:34)
[2017-08-04] MEDS: APIXABAN 5 MG TABLET PO SCH (21:35)
[2017-08-04] MEDS: DIVALPROEX 125 MG CAP.SPRINK PO SCH (21:35)
[2017-08-04] MEDS: ATORVASTATIN 40 MG TABLET PO SCH (21:35)
[2017-08-04 23:09] LABS: TROPONIN I < 0.015 ng/mL (0.000-0.045)
[2017-08-05] MEDS: PIPERACILLIN/TAZO/PMX 3.375GM 50 ML IV SCH ×4 (00:53→19:57)
[2017-08-05 04:00] VITALS: BP 163/66
[2017-08-05 04:39] LABS: BASOPHILS # (AUTO) 0.02 x10^3/uL (0-0.1); BASOPHILS % (AUTO) 0 % (0-1); EOSINOPHILS # (AUTO) 0.01 x10^3/uL (0-0.4); EOSINOPHILS % (AUTO) 0 % (1-7); LYMPHOCYTES # (AUTO) 1.26 x10^3/uL (1-3.4); LYMPHOCYTES % (AUTO) 9 % (22-44); MD NO; MEAN CORPUSCULAR HEMOGLOBIN 30.7 pg (27.0-34.8); MEAN CORPUSCULAR HGB CONC 33.7 g/dL (32.4-35.8); MEAN CORPUSCULAR VOLUME 91.2 fL (80-100); MEAN PLATELET VOLUME 8.2 fL (7.4-10.4); MONOCYTES # (AUTO) 0.49 x10^3/uL (0.2-0.8); MONOCYTES % (AUTO) 4 % (2-9); NEUTROPHILS % (AUTO) 87 % (42-75); PLATELET COUNT 279 x10^3/uL (130-400); RED BLOOD COUNT 3.73 x10^6/uL (3.82-5.3); RED CELL DISTRIBUTION WIDTH 17.2 % (9.6-15.2)
[2017-08-05 04:51] LABS: ALBUMIN 2.5 g/dL (3.4-5.0); ANION GAP 5 mmol/L (5-15); CALCIUM 8.1 mg/dL (8.5-10.1); CHLORIDE 96 mmol/L (98-107)
[2017-08-05 04:55] LABS: ALANINE AMINOTRANSFERASE 36 U/L (12-78); ALKALINE PHOSPHATASE 89 U/L (45-117); BILIRUBIN,TOTAL 0.8 mg/dL (0.2-1.0); CREATININE 1.08 mg/dL (0.55-1.02); TOTAL PROTEIN 6.9 g/dL (6.4-8.2)
[2017-08-05] MEDS: OMEPRAZOLE 20 MG CAPSULE.DR PO SCH (06:19)
[2017-08-05] MEDS: THYROID 30 MG TABLET PO SCH (06:19)
[2017-08-05] MEDS: ALBUTEROL SULFATE 2.5 MG/3 ML NPPB SCH ×4 (07:30→19:42)
[2017-08-05] MEDS: FLUTICASONE/VILANTEROL 200-25MCG/INH INH SCH (09:00)
[2017-08-05] MEDS ORDERED: FLUTICASONE/VILANTEROL 200-25MCG/INH INH SCH (09:00)
[2017-08-05] MEDS ORDERED: FUROSEMIDE 20 MG/2 ML IV ONE (12:30)
[2017-08-05] MEDS ORDERED: POTASSIUM CHLORIDE 20 MEQ TAB.ER.PRT PO ONE (13:00)
[2017-08-05] MEDS ORDERED: METOPROLOL TARTRATE 50 MG TABLET ONE (13:01)
[2017-08-05] MEDS ORDERED: POTASSIUM CHLORIDE 20 MEQ TAB.ER.PRT ONE (13:02)
[2017-08-05] MEDS: APIXABAN 5 MG TABLET PO SCH ×2 (13:09→20:48)
[2017-08-05] MEDS: METOPROLOL TARTRATE 50 MG TABLET PO SCH (13:09)
[2017-08-05] MEDS: DIVALPROEX 125 MG CAP.SPRINK PO SCH ×2 (13:09→20:47)
[2017-08-05] MEDS: DILTIAZEM 125 MG in SODIUM CHLORIDE 0.9% 100 ML IV PRN (14:14)
[2017-08-05] MEDS: ENALAPRILAT 1.25 MG/ML, 2ML IVPush PRN ×2 (14:45→18:05)
[2017-08-05] MEDS: ONDANSETRON ODT 4 MG PO PRN (17:20)
[2017-08-05 18:00] VITALS: BP 165/98
[2017-08-05 19:10] VITALS: BP 159/72
[2017-08-05] MEDS: NITROGLYCERIN 0.4 MG BOTTLE (25 TABS) SL SCH (20:00)
[2017-08-05 20:29] VITALS: BP_SYST 132; BP_SYST 154; BP_DIAS 111; BP_DIAS 74
[2017-08-05] MEDS: ATORVASTATIN 40 MG TABLET PO SCH (20:47)
[2017-08-05] MEDS ORDERED: DILTIAZEM 5 MG/ML, 5ML IVPush ONE (21:30)
[2017-08-06] VITALS (7 sets, daily range): BP systolic 122–149; BP diastolic 68–82
[2017-08-06] MEDS: PIPERACILLIN/TAZO/PMX 3.375GM 50 ML IV SCH ×4 (01:06→20:13)
[2017-08-06] MEDS: METOPROLOL TARTRATE 50 MG TABLET PO SCH (01:07)
[2017-08-06] MEDS: ALBUTEROL SULFATE 2.5 MG/3 ML NPPB SCH ×7 (01:43→23:00)
[2017-08-06 05:32] LABS: ALANINE AMINOTRANSFERASE 32 U/L (12-78); ALBUMIN 2.4 g/dL (3.4-5.0); ANION GAP 1 mmol/L (5-15); CALCIUM 8.8 mg/dL (8.5-10.1); CHLORIDE 96 mmol/L (98-107)
[2017-08-06 05:34] LABS: ALKALINE PHOSPHATASE 89 U/L (45-117); BILIRUBIN,TOTAL 0.5 mg/dL (0.2-1.0); CREATININE 1.02 mg/dL (0.55-1.02); TOTAL PROTEIN 7.3 g/dL (6.4-8.2)
[2017-08-06 05:35] LABS: BASOPHILS # (AUTO) 0.03 x10^3/uL (0-0.1); BASOPHILS % (AUTO) 0 % (0-1); EOSINOPHILS # (AUTO) 0.05 x10^3/uL (0-0.4); EOSINOPHILS % (AUTO) 0 % (1-7); LYMPHOCYTES # (AUTO) 1.11 x10^3/uL (1-3.4); LYMPHOCYTES % (AUTO) 8 % (22-44); MD NO; MEAN CORPUSCULAR HEMOGLOBIN 30.8 pg (27.0-34.8); MEAN CORPUSCULAR HGB CONC 33.4 g/dL (32.4-35.8); MEAN CORPUSCULAR VOLUME 92.2 fL (80-100); MONOCYTES # (AUTO) 0.42 x10^3/uL (0.2-0.8); MONOCYTES % (AUTO) 3 % (2-9); NEUTROPHILS # (AUTO) 11.78 x10^3/uL (1.8-6.8); NEUTROPHILS % (AUTO) 88 % (42-75); PLATELET COUNT 275 x10^3/uL (130-400); RED CELL DISTRIBUTION WIDTH 16.8 % (9.6-15.2)
[2017-08-06] MEDS: THYROID 30 MG TABLET PO SCH (06:11)
[2017-08-06] MEDS ORDERED: DILTIAZEM 5 MG/ML, 5ML IVPush ONE ×2 (07:00→08:00)
[2017-08-06] MEDS: OMEPRAZOLE 20 MG CAPSULE.DR PO SCH (07:33)
[2017-08-06] MEDS: FLUTICASONE/VILANTEROL 200-25MCG/INH INH SCH (08:33)
[2017-08-06] MEDS: APIXABAN 5 MG TABLET PO SCH ×2 (08:33→21:40)
[2017-08-06] MEDS: DIVALPROEX 125 MG CAP.SPRINK PO SCH ×2 (08:47→21:39)
[2017-08-06] MEDS ORDERED: METOPROLOL TARTRATE 100 MG TABLET PO SCH ×2 (10:00→22:00)
[2017-08-06] MEDS ORDERED: METOPROLOL TARTRATE 50 MG TABLET PO SCH (13:00)
[2017-08-06] MEDS ORDERED: VANCOMYCIN 1,500 MG in SODIUM CHLORIDE 0.9% 250 ML IV SCH (16:00)
[2017-08-06] MEDS: NITROGLYCERIN 0.4 MG BOTTLE (25 TABS) SL SCH (20:13)
[2017-08-06] MEDS: ATORVASTATIN 40 MG TABLET PO SCH (21:40)
[2017-08-07] VITALS (7 sets, daily range): BP systolic 120–173; BP diastolic 72–104
[2017-08-07] MEDS: PIPERACILLIN/TAZO/PMX 3.375GM 50 ML IV SCH (02:10)
[2017-08-07] MEDS: ALBUTEROL SULFATE 2.5 MG/3 ML NPPB SCH ×6 (02:42→23:00)
[2017-08-07 05:23] LABS: BASOPHILS # (AUTO) 0.02 x10^3/uL (0-0.1); BASOPHILS % (AUTO) 0 % (0-1); EOSINOPHILS % (AUTO) 2 % (1-7); LYMPHOCYTES # (AUTO) 2.29 x10^3/uL (1-3.4); LYMPHOCYTES % (AUTO) 22 % (22-44); MD NO; MEAN CORPUSCULAR HEMOGLOBIN 31.1 pg (27.0-34.8); MEAN CORPUSCULAR HGB CONC 33.4 g/dL (32.4-35.8); MEAN CORPUSCULAR VOLUME 93.3 fL (80-100); MEAN PLATELET VOLUME 8.1 fL (7.4-10.4); MONOCYTES # (AUTO) 0.64 x10^3/uL (0.2-0.8); MONOCYTES % (AUTO) 6 % (2-9); NEUTROPHILS # (AUTO) 7.32 x10^3/uL (1.8-6.8); NEUTROPHILS % (AUTO) 70 % (42-75); PLATELET COUNT 284 x10^3/uL (130-400); RED BLOOD COUNT 3.59 x10^6/uL (3.82-5.3); RED CELL DISTRIBUTION WIDTH 17.4 % (9.6-15.2)
[2017-08-07 05:43] LABS: CHLORIDE 97 mmol/L (98-107)
[2017-08-07 05:51] LABS: ALANINE AMINOTRANSFERASE 25 U/L (12-78); ALBUMIN 2.2 g/dL (3.4-5.0); ALKALINE PHOSPHATASE 76 U/L (45-117); ANION GAP 4 mmol/L (5-15); BILIRUBIN,TOTAL 0.4 mg/dL (0.2-1.0); CREATININE 0.89 mg/dL (0.55-1.02); TOTAL PROTEIN 7.1 g/dL (6.4-8.2)
[2017-08-07] MEDS: THYROID 30 MG TABLET PO SCH (06:52)
[2017-08-07] MEDS: SODIUM BICARBONATE 4.2%, 5ML NPPB SCH ×5 (07:00→23:00)
[2017-08-07] MEDS ORDERED: CEFTRIAXONE 1,000 MG in SODIUM CHLORIDE 0.9% 50 ML IV SCH (07:30)
[2017-08-07 08:45] LABS: CLOSTRIDIUM DIFFICILE ANTIGEN NEGATIVE; CLOSTRIDIUM DIFFICILE TOXIN NEGATIVE (Negative)
[2017-08-07] MEDS ORDERED: DILTIAZEM 60 MG TABLET PO SCH ×2 (09:00→23:18)
[2017-08-07] MEDS: FLUTICASONE/VILANTEROL 200-25MCG/INH INH SCH (09:34)
[2017-08-07] MEDS: DIVALPROEX 125 MG CAP.SPRINK PO SCH ×2 (09:35→22:04)
[2017-08-07] MEDS: APIXABAN 5 MG TABLET PO SCH ×2 (09:35→22:04)
[2017-08-07] MEDS: METOPROLOL TARTRATE 100 MG TABLET PO SCH ×2 (09:35→22:04)
[2017-08-07] MEDS: OMEPRAZOLE 20 MG CAPSULE.DR PO SCH (09:35)
[2017-08-07] MEDS: CEFTRIAXONE 1,000 MG in SODIUM CHLORIDE 0.9% 50 ML IV SCH (09:49)
[2017-08-07] MEDS: DOXYCYCLINE 100 MG in DEXTROSE 5% 250 ML IV SCH ×2 (11:41→23:31)
[2017-08-07] MEDS ORDERED: METOPROLOL 1 MG/ML, 5ML IVPush PRN (12:00)
[2017-08-07] MEDS ORDERED: DILTIAZEM 60 MG TABLET PO ONE (12:00)
[2017-08-07] MEDS: ONDANSETRON ODT 4 MG PO PRN (15:42)
[2017-08-07] MEDS: NITROGLYCERIN 0.4 MG BOTTLE (25 TABS) SL SCH (22:04)
[2017-08-07] MEDS: ATORVASTATIN 40 MG TABLET PO SCH (22:04)
[2017-08-08] VITALS (7 sets, daily range): BP systolic 141–180; BP diastolic 76–105
[2017-08-08] MEDS ORDERED: DILTIAZEM 5 MG/ML, 5ML IVPush ONE
[2017-08-08] MEDS: ALBUTEROL SULFATE 2.5 MG/3 ML NPPB SCH ×5 (03:00→19:08)
[2017-08-08 05:41] LABS: BASOPHILS # (AUTO) 0.03 x10^3/uL (0-0.1); BASOPHILS % (AUTO) 0 % (0-1); EOSINOPHILS % (AUTO) 1 % (1-7); LYMPHOCYTES # (AUTO) 2.29 x10^3/uL (1-3.4); LYMPHOCYTES % (AUTO) 20 % (22-44); MD NO; MEAN CORPUSCULAR HEMOGLOBIN 29.9 pg (27.0-34.8); MEAN CORPUSCULAR HGB CONC 32.4 g/dL (32.4-35.8); MEAN CORPUSCULAR VOLUME 92.2 fL (80-100); MEAN PLATELET VOLUME 7.9 fL (7.4-10.4); MONOCYTES # (AUTO) 0.71 x10^3/uL (0.2-0.8); MONOCYTES % (AUTO) 6 % (2-9); NEUTROPHILS % (AUTO) 72 % (42-75); PLATELET COUNT 302 x10^3/uL (130-400); RED BLOOD COUNT 3.71 x10^6/uL (3.82-5.3); RED CELL DISTRIBUTION WIDTH 17.1 % (9.6-15.2)
[2017-08-08 05:51] LABS: CALCIUM 8.9 mg/dL (8.5-10.1); CHLORIDE 98 mmol/L (98-107)
[2017-08-08 05:57] LABS: ALANINE AMINOTRANSFERASE 23 U/L (12-78); ALBUMIN 2.3 g/dL (3.4-5.0); ALKALINE PHOSPHATASE 83 U/L (45-117); ANION GAP 5 mmol/L (5-15); BILIRUBIN,TOTAL 0.5 mg/dL (0.2-1.0); CREATININE 0.81 mg/dL (0.55-1.02); TOTAL PROTEIN 7.1 g/dL (6.4-8.2)
[2017-08-08] MEDS: THYROID 30 MG TABLET PO SCH (06:45)
[2017-08-08] MEDS: SODIUM BICARBONATE 4.2%, 5ML NPPB SCH ×5 (07:00→21:00)
[2017-08-08] MEDS: DIVALPROEX 125 MG CAP.SPRINK PO SCH ×2 (09:00→22:17)
[2017-08-08] MEDS: FLUTICASONE/VILANTEROL 200-25MCG/INH INH SCH (09:15)
[2017-08-08] MEDS: OMEPRAZOLE 20 MG CAPSULE.DR PO SCH (09:16)
[2017-08-08] MEDS: DILTIAZEM 60 MG TABLET PO SCH ×2 (09:16→21:58)
[2017-08-08] MEDS: APIXABAN 5 MG TABLET PO SCH ×2 (09:16→22:00)
[2017-08-08] MEDS: METOPROLOL TARTRATE 100 MG TABLET PO SCH ×2 (09:20→22:01)
[2017-08-08] MEDS: CEFTRIAXONE 1,000 MG in SODIUM CHLORIDE 0.9% 50 ML IV SCH (09:53)
[2017-08-08] MEDS: DOXYCYCLINE 100 MG in DEXTROSE 5% 250 ML IV SCH ×2 (11:47→23:36)
[2017-08-08] MEDS: LOPERAMIDE 2 MG CAPSULE PO PRN (15:22)
[2017-08-08] MEDS: LACTOBACILLUS CHEW TABLET PO SCH ×2 (15:22→22:00)
[2017-08-08] MEDS: FUROSEMIDE 20 MG/2 ML IV SCH (17:46)
[2017-08-08] MEDS: NITROGLYCERIN 0.4 MG BOTTLE (25 TABS) SL SCH (19:31)
[2017-08-08] MEDS: ATORVASTATIN 40 MG TABLET PO SCH (22:00)
[2017-08-08] MEDS ORDERED: DIGOXIN 0.25 MG/ML, 2ML ONE (23:26)
[2017-08-08] MEDS ORDERED: DIGOXIN 0.25 MG/ML, 2ML IVPush ONE (23:30)
[2017-08-09] VITALS (7 sets, daily range): BP systolic 119–162; BP diastolic 70–89
[2017-08-09] MEDS: THYROID 30 MG TABLET PO SCH (05:14)
[2017-08-09 05:33] LABS: MEAN CORPUSCULAR HEMOGLOBIN 30.2 pg (27.0-34.8); MEAN CORPUSCULAR HGB CONC 32.6 g/dL (32.4-35.8); MEAN CORPUSCULAR VOLUME 92.7 fL (80-100); MEAN PLATELET VOLUME 7.8 fL (7.4-10.4); PLATELET COUNT 326 x10^3/uL (130-400); RED BLOOD COUNT 3.68 x10^6/uL (3.82-5.3); RED CELL DISTRIBUTION WIDTH 17.1 % (9.6-15.2)
[2017-08-09 05:46] LABS: CHLORIDE 100 mmol/L (98-107)
[2017-08-09 05:54] LABS: ALANINE AMINOTRANSFERASE 21 U/L (12-78); ALBUMIN 2.2 g/dL (3.4-5.0); ALKALINE PHOSPHATASE 94 U/L (45-117); ANION GAP 7 mmol/L (5-15); BILIRUBIN,TOTAL 0.4 mg/dL (0.2-1.0); CALCIUM 8.9 mg/dL (8.5-10.1); TOTAL PROTEIN 6.8 g/dL (6.4-8.2)
[2017-08-09 06:22] LABS: MD YES
[2017-08-09 06:25] LABS: <PLATELET ESTIMATE> ADEQUATE; <PLT MORPHOLOGY> NORMAL PLT MORPH; ANISOCYTOSIS 1+; BASOS#(MANUAL) 0.12 x10^3/uL (0-0.1); BASOS% (MANUAL) 1 % (0-1); EOS#(MANUAL) 0.12 x10^3/uL (0.0-0.4); EOS% (MANUAL) 1 % (1-7); LYMPH#(MANUAL) 2.85 x10^3/uL (1-3.4); LYMPHS% (MANUAL) 23 % (22-44); METAMYELOCYTES# (MANUAL) 0.25 x10^3/uL (0-0); METAMYELOCYTES% (MANUAL) 2 % (0-1); MONOS#(MANUAL) 0.37 x10^3/uL (0.3-2.7); MONOS% (MANUAL) 3 % (2-9); MYELOCYTES# (MANUAL) 0.12 x10^3/uL (0-0); MYELOCYTES% (MANUAL) 1 % (0-0); REACTIVE LYMPHS # (MANUAL) 0.25 x10^3/uL (0-0); REACTIVE LYMPHS % (MANUAL) 2 % (0-0); SEG#(MANUAL) 8.31 x10^3/uL (1.8-6.8); SEGS% (MANUAL) 67 % (42-75)
[2017-08-09] MEDS ORDERED: FUROSEMIDE 20 MG/2 ML IV SCH (07:30)
[2017-08-09] MEDS: SODIUM BICARBONATE 4.2%, 5ML NPPB SCH ×4 (07:45→19:14)
[2017-08-09] MEDS: ALBUTEROL SULFATE 2.5 MG/3 ML NPPB SCH ×4 (07:45→19:13)
[2017-08-09] MEDS: APIXABAN 5 MG TABLET PO SCH ×2 (09:30→21:23)
[2017-08-09] MEDS: OMEPRAZOLE 20 MG CAPSULE.DR PO SCH (09:30)
[2017-08-09] MEDS: DILTIAZEM 60 MG TABLET PO SCH ×2 (09:30→21:24)
[2017-08-09] MEDS: LOPERAMIDE 2 MG CAPSULE PO PRN ×2 (09:30→21:23)
[2017-08-09] MEDS: LACTOBACILLUS CHEW TABLET PO SCH ×3 (09:30→21:24)
[2017-08-09] MEDS: DIGOXIN 0.25 MG TABLET PO SCH (09:30)
[2017-08-09] MEDS: FUROSEMIDE 20 MG/2 ML IV SCH ×2 (09:37→16:32)
[2017-08-09] MEDS: CEFTRIAXONE 1,000 MG in SODIUM CHLORIDE 0.9% 50 ML IV SCH (09:37)
[2017-08-09] MEDS: FLUTICASONE/VILANTEROL 200-25MCG/INH INH SCH (09:37)
[2017-08-09] MEDS: DIVALPROEX 125 MG CAP.SPRINK PO SCH ×2 (10:45→21:25)
[2017-08-09] MEDS: METOPROLOL TARTRATE 100 MG TABLET PO SCH ×2 (10:45→23:36)
[2017-08-09] MEDS: DOXYCYCLINE 100 MG in DEXTROSE 5% 250 ML IV SCH ×2 (11:42→23:38)
[2017-08-09] MEDS ORDERED: OMNIPAQUE 350 MG/ML, 100ML BOTTLE ONE (13:59)
[2017-08-09] MEDS ORDERED: NITROGLYCERIN 0.4 MG BOTTLE (25 TABS) SL PRN (20:05)
[2017-08-09] MEDS: ATORVASTATIN 40 MG TABLET PO SCH (21:23)
[2017-08-10 00:31] VITALS: BP 143/73
[2017-08-10] MEDS: THYROID 30 MG TABLET PO SCH (05:14)
[2017-08-10] MEDS: SODIUM BICARBONATE 4.2%, 5ML NPPB SCH ×2 (06:00→11:00)
[2017-08-10] MEDS: ALBUTEROL SULFATE 2.5 MG/3 ML NPPB SCH ×4 (07:00→20:30)
[2017-08-10 07:45] VITALS: BP 138/81
[2017-08-10] MEDS ORDERED: DILTIAZEM 30 MG TABLET ONE (07:45)
[2017-08-10] MEDS: FUROSEMIDE 20 MG/2 ML IV SCH ×2 (07:50→17:30)
[2017-08-10] MEDS: LACTOBACILLUS CHEW TABLET PO SCH ×3 (07:51→20:49)
[2017-08-10] MEDS: DIVALPROEX 125 MG CAP.SPRINK PO SCH ×2 (07:51→20:49)
[2017-08-10] MEDS: APIXABAN 5 MG TABLET PO SCH ×2 (07:51→20:49)
[2017-08-10] MEDS: OMEPRAZOLE 20 MG CAPSULE.DR PO SCH (07:51)
[2017-08-10] MEDS: DIGOXIN 0.25 MG TABLET PO SCH (07:52)
[2017-08-10] MEDS: DILTIAZEM 60 MG TABLET PO SCH (07:52)
[2017-08-10] MEDS: FLUTICASONE/VILANTEROL 200-25MCG/INH INH SCH (07:54)
[2017-08-10] MEDS: CEFTRIAXONE 1,000 MG in SODIUM CHLORIDE 0.9% 50 ML IV SCH (10:15)
[2017-08-10] MEDS: METOPROLOL TARTRATE 100 MG TABLET PO SCH (10:16)
[2017-08-10] MEDS: DOXYCYCLINE 100 MG in DEXTROSE 5% 250 ML IV SCH ×2 (11:34→23:27)
[2017-08-10] MEDS: LOPERAMIDE 2 MG CAPSULE PO PRN ×2 (11:58→20:49)
[2017-08-10 13:54] VITALS: BP 143/72
[2017-08-10 19:13] VITALS: BP 149/82
[2017-08-10] MEDS: ATORVASTATIN 40 MG TABLET PO SCH (20:49)
[2017-08-11 02:09] VITALS: BP 147/81
[2017-08-11 04:35] LABS: BASOPHILS # (AUTO) 0.05 x10^3/uL (0-0.1); BASOPHILS % (AUTO) 0 % (0-1); EOSINOPHILS # (AUTO) 0.26 x10^3/uL (0-0.4); EOSINOPHILS % (AUTO) 2 % (1-7); LYMPHOCYTES # (AUTO) 3.13 x10^3/uL (1-3.4); LYMPHOCYTES % (AUTO) 20 % (22-44); MD NO; MEAN CORPUSCULAR HEMOGLOBIN 30.3 pg (27.0-34.8); MEAN CORPUSCULAR HGB CONC 32.8 g/dL (32.4-35.8); MEAN CORPUSCULAR VOLUME 92.2 fL (80-100); MEAN PLATELET VOLUME 7.7 fL (7.4-10.4); MONOCYTES # (AUTO) 0.63 x10^3/uL (0.2-0.8); MONOCYTES % (AUTO) 4 % (2-9); NEUTROPHILS # (AUTO) 11.33 x10^3/uL (1.8-6.8); NEUTROPHILS % (AUTO) 74 % (42-75); PLATELET COUNT 431 x10^3/uL (130-400); RED BLOOD COUNT 3.88 x10^6/uL (3.82-5.3); RED CELL DISTRIBUTION WIDTH 16.2 % (9.6-15.2)
[2017-08-11 04:40] LABS: ALBUMIN 2.2 g/dL (3.4-5.0); ANION GAP 6 mmol/L (5-15); CALCIUM 8.8 mg/dL (8.5-10.1); CHLORIDE 100 mmol/L (98-107)
[2017-08-11 04:43] LABS: ALANINE AMINOTRANSFERASE 16 U/L (12-78); ALKALINE PHOSPHATASE 94 U/L (45-117); BILIRUBIN,TOTAL 0.4 mg/dL (0.2-1.0); CREATININE 0.94 mg/dL (0.55-1.02); TOTAL PROTEIN 6.8 g/dL (6.4-8.2)
[2017-08-11] MEDS: THYROID 30 MG TABLET PO SCH (05:15)
[2017-08-11] MEDS: ALBUTEROL SULFATE 2.5 MG/3 ML NPPB SCH ×4 (07:15→19:23)
[2017-08-11 08:16] VITALS: BP 156/80
[2017-08-11] MEDS: FLUTICASONE/VILANTEROL 200-25MCG/INH INH SCH (09:31)
[2017-08-11] MEDS: LACTOBACILLUS CHEW TABLET PO SCH ×3 (09:32→21:27)
[2017-08-11] MEDS: DIGOXIN 0.25 MG TABLET PO SCH (09:32)
[2017-08-11] MEDS: OMEPRAZOLE 20 MG CAPSULE.DR PO SCH (09:33)
[2017-08-11] MEDS: APIXABAN 5 MG TABLET PO SCH ×2 (09:33→21:27)
[2017-08-11] MEDS: DIVALPROEX 125 MG CAP.SPRINK PO SCH ×2 (09:33→21:00)
[2017-08-11] MEDS: FUROSEMIDE 20 MG/2 ML IV SCH ×3 (09:34→17:11)
[2017-08-11 09:36] VITALS: BP 144/80
[2017-08-11] MEDS: POTASSIUM CHLORIDE 20 MEQ TAB.ER.PRT PO SCH ×2 (10:28→17:11)
[2017-08-11] MEDS: METOPROLOL TARTRATE 50 MG TABLET PO SCH ×2 (10:29→17:11)
[2017-08-11] MEDS: CEFTRIAXONE 1,000 MG in SODIUM CHLORIDE 0.9% 50 ML IV SCH (11:15)
[2017-08-11] MEDS: DOXYCYCLINE 100 MG in DEXTROSE 5% 250 ML IV SCH ×2 (12:24→23:33)
[2017-08-11 17:07] VITALS: BP 158/83
[2017-08-11 18:36] VITALS: BP 156/74
[2017-08-11] MEDS: ISOSORBIDE DINITRATE 10 MG TABLET PO SCH (21:27)
[2017-08-11] MEDS: ATORVASTATIN 40 MG TABLET PO SCH (21:28)
[2017-08-11] MEDS: SODIUM CHLORIDE 0.9% 1,000 ML IV SCH (21:29)
[2017-08-12 01:15] VITALS: BP 140/85
[2017-08-12 05:01] LABS: ANION GAP 6 mmol/L (5-15); CALCIUM 8.7 mg/dL (8.5-10.1); CHLORIDE 104 mmol/L (98-107)
[2017-08-12 05:04] LABS: CREATININE 0.84 mg/dL (0.55-1.02)
[2017-08-12 05:05] LABS: BASOPHILS # (AUTO) 0.03 x10^3/uL (0-0.1); BASOPHILS % (AUTO) 0 % (0-1); EOSINOPHILS # (AUTO) 0.21 x10^3/uL (0-0.4); EOSINOPHILS % (AUTO) 1 % (1-7); LYMPHOCYTES # (AUTO) 3.88 x10^3/uL (1-3.4); LYMPHOCYTES % (AUTO) 25 % (22-44); MD NO; MEAN CORPUSCULAR HEMOGLOBIN 31.4 pg (27.0-34.8); MEAN CORPUSCULAR VOLUME 94.9 fL (80-100); MEAN PLATELET VOLUME 7.7 fL (7.4-10.4); MONOCYTES # (AUTO) 0.84 x10^3/uL (0.2-0.8); MONOCYTES % (AUTO) 5 % (2-9); NEUTROPHILS # (AUTO) 10.81 x10^3/uL (1.8-6.8); NEUTROPHILS % (AUTO) 69 % (42-75); PLATELET COUNT 427 x10^3/uL (130-400); RED BLOOD COUNT 3.62 x10^6/uL (3.82-5.3); RED CELL DISTRIBUTION WIDTH 16.8 % (9.6-15.2)
[2017-08-12] MEDS ORDERED: CARVEDILOL 12.5 MG TABLET PO SCH (06:00)
[2017-08-12] MEDS: THYROID 30 MG TABLET PO SCH (06:24)
[2017-08-12] MEDS: ALBUTEROL SULFATE 2.5 MG/3 ML NPPB SCH ×4 (06:53→19:52)
[2017-08-12 07:45] VITALS: BP 130/67
[2017-08-12] MEDS ORDERED: MAGNESIUM SULFATE PMX 2GM/50ML 50 ML IV ONE (08:30)
[2017-08-12] MEDS: FLUTICASONE/VILANTEROL 200-25MCG/INH INH SCH (08:42)
[2017-08-12] MEDS: LACTOBACILLUS CHEW TABLET PO SCH ×3 (08:42→20:55)
[2017-08-12] MEDS: OMEPRAZOLE 20 MG CAPSULE.DR PO SCH (08:43)
[2017-08-12] MEDS: ISOSORBIDE DINITRATE 10 MG TABLET PO SCH (08:43)
[2017-08-12] MEDS: DIGOXIN 0.25 MG TABLET PO SCH (08:43)
[2017-08-12] MEDS: APIXABAN 5 MG TABLET PO SCH ×2 (08:43→20:56)
[2017-08-12] MEDS: FLUCONAZOLE 200 MG/100 ML 100 ML IV SCH (08:44)
[2017-08-12] MEDS: DIVALPROEX 125 MG CAP.SPRINK PO SCH ×2 (08:44→20:56)
[2017-08-12] MEDS: POTASSIUM CHLORIDE 20 MEQ TAB.ER.PRT PO SCH (08:44)
[2017-08-12] MEDS: CEFTRIAXONE 1,000 MG in SODIUM CHLORIDE 0.9% 50 ML IV SCH (10:01)
[2017-08-12] MEDS: DOXYCYCLINE 100 MG in DEXTROSE 5% 250 ML IV SCH (13:01)
[2017-08-12 13:28] VITALS: BP 165/87
[2017-08-12] MEDS: METOPROLOL TARTRATE 50 MG TABLET PO SCH (17:26)
[2017-08-12 19:44] VITALS: BP_SYST 128; BP_SYST 156; BP_DIAS 62; BP_DIAS 85
[2017-08-12] MEDS: ATORVASTATIN 40 MG TABLET PO SCH (20:56)
[2017-08-12] MEDS: SODIUM CHLORIDE 0.9% 1,000 ML IV SCH (21:45)
[2017-08-13] MEDS: DOXYCYCLINE 100 MG in DEXTROSE 5% 250 ML IV SCH ×2 (01:16→14:26)
[2017-08-13 02:09] VITALS: BP 156/92
[2017-08-13] MEDS: METOPROLOL TARTRATE 50 MG TABLET PO SCH ×2 (05:39→17:10)
[2017-08-13] MEDS: THYROID 30 MG TABLET PO SCH (05:39)
[2017-08-13 05:44] LABS: ANION GAP 5 mmol/L (5-15); BASOPHILS # (AUTO) 0.04 x10^3/uL (0-0.1); BASOPHILS % (AUTO) 0 % (0-1); CALCIUM 8.9 mg/dL (8.5-10.1); CHLORIDE 105 mmol/L (98-107); EOSINOPHILS # (AUTO) 0.23 x10^3/uL (0-0.4); EOSINOPHILS % (AUTO) 1 % (1-7); LYMPHOCYTES # (AUTO) 3.15 x10^3/uL (1-3.4); LYMPHOCYTES % (AUTO) 20 % (22-44); MD NO; MEAN CORPUSCULAR HEMOGLOBIN 31.9 pg (27.0-34.8); MEAN CORPUSCULAR HGB CONC 33.5 g/dL (32.4-35.8); MEAN CORPUSCULAR VOLUME 95.5 fL (80-100); MEAN PLATELET VOLUME 7.6 fL (7.4-10.4); MONOCYTES # (AUTO) 0.85 x10^3/uL (0.2-0.8); MONOCYTES % (AUTO) 5 % (2-9); NEUTROPHILS # (AUTO) 11.72 x10^3/uL (1.8-6.8); NEUTROPHILS % (AUTO) 73 % (42-75); PLATELET COUNT 434 x10^3/uL (130-400); RED BLOOD COUNT 3.73 x10^6/uL (3.82-5.3); RED CELL DISTRIBUTION WIDTH 16.8 % (9.6-15.2)
[2017-08-13 05:46] LABS: CREATININE 0.76 mg/dL (0.55-1.02)
[2017-08-13] MEDS: ALBUTEROL SULFATE 2.5 MG/3 ML NPPB SCH ×4 (07:00→20:00)
[2017-08-13 07:38] VITALS: BP 165/98
[2017-08-13] MEDS: DIGOXIN 0.25 MG TABLET PO SCH (08:30)
[2017-08-13] MEDS: FLUCONAZOLE 200 MG/100 ML 100 ML IV SCH (08:30)
[2017-08-13] MEDS: DIVALPROEX 125 MG CAP.SPRINK PO SCH ×2 (08:30→20:21)
[2017-08-13] MEDS: LACTOBACILLUS CHEW TABLET PO SCH ×3 (08:30→20:21)
[2017-08-13] MEDS: OMEPRAZOLE 20 MG CAPSULE.DR PO SCH (08:30)
[2017-08-13] MEDS: APIXABAN 5 MG TABLET PO SCH ×2 (08:31→20:22)
[2017-08-13] MEDS: FLUTICASONE/VILANTEROL 200-25MCG/INH INH SCH (08:31)
[2017-08-13] MEDS: CEFTRIAXONE 1,000 MG in SODIUM CHLORIDE 0.9% 50 ML IV SCH (10:45)
[2017-08-13] MEDS ORDERED: SODIUM CHLORIDE NASAL SPRAY 45ML BOTTLE NAS PRN (11:00)
[2017-08-13 13:34] VITALS: BP 163/85
[2017-08-13] MEDS ORDERED: CEFTRIAXONE PMX 2GM/50ML 50 ML IV SCH (14:30)
[2017-08-13] MEDS ORDERED: CEFTRIAXONE PMX 1GM/50ML 50 ML IV ONE (16:00)
[2017-08-13 19:15] VITALS: BP_SYST 171; BP_SYST 172; BP_DIAS 107; BP_DIAS 78
[2017-08-13] MEDS: ATORVASTATIN 40 MG TABLET PO SCH (20:21)
[2017-08-14] MEDS: SODIUM CHLORIDE 0.9% 1,000 ML IV SCH ×2 (00:31→12:39)
[2017-08-14] MEDS: DOXYCYCLINE 100 MG in DEXTROSE 5% 250 ML IV SCH ×2 (00:31→12:38)
[2017-08-14 01:24] VITALS: BP 159/83
[2017-08-14 05:26] LABS: BASOPHILS # (AUTO) 0.15 x10^3/uL (0-0.1); BASOPHILS % (AUTO) 1 % (0-1); EOSINOPHILS % (AUTO) 1 % (1-7); LYMPHOCYTES # (AUTO) 3.65 x10^3/uL (1-3.4); LYMPHOCYTES % (AUTO) 22 % (22-44); MD NO; MEAN CORPUSCULAR HEMOGLOBIN 31.8 pg (27.0-34.8); MEAN CORPUSCULAR HGB CONC 33.4 g/dL (32.4-35.8); MEAN PLATELET VOLUME 7.9 fL (7.4-10.4); MONOCYTES # (AUTO) 1.09 x10^3/uL (0.2-0.8); MONOCYTES % (AUTO) 7 % (2-9); NEUTROPHILS # (AUTO) 11.31 x10^3/uL (1.8-6.8); NEUTROPHILS % (AUTO) 69 % (42-75); PLATELET COUNT 398 x10^3/uL (130-400); RED CELL DISTRIBUTION WIDTH 16.5 % (9.6-15.2)
[2017-08-14 05:51] VITALS: BP 152/80
[2017-08-14] MEDS: THYROID 30 MG TABLET PO SCH (05:55)
[2017-08-14] MEDS: METOPROLOL TARTRATE 50 MG TABLET PO SCH (05:55)
[2017-08-14] MEDS: ALBUTEROL SULFATE 2.5 MG/3 ML NPPB SCH ×3 (07:00→14:57)
[2017-08-14] MEDS: APIXABAN 5 MG TABLET PO SCH (08:04)
[2017-08-14] MEDS: DIGOXIN 0.25 MG TABLET PO SCH (08:04)
[2017-08-14] MEDS: DIVALPROEX 125 MG CAP.SPRINK PO SCH (08:04)
[2017-08-14] MEDS: OMEPRAZOLE 20 MG CAPSULE.DR PO SCH (08:04)
[2017-08-14] MEDS: LACTOBACILLUS CHEW TABLET PO SCH (08:04)
[2017-08-14] MEDS: FLUCONAZOLE 200 MG/100 ML 100 ML IV SCH (08:05)
[2017-08-14] MEDS: FLUTICASONE/VILANTEROL 200-25MCG/INH INH SCH (08:07)
[2017-08-14 08:20] VITALS: BP 186/90
[2017-08-14] MEDS ORDERED: ISOSORBIDE DINITRATE 10 MG TABLET PO SCH (09:00)
[2017-08-14] MEDS ORDERED: CEFTRIAXONE PMX 2GM/50ML 50 ML IV SCH (11:00)
[2017-08-14] MEDS ORDERED: LOPE2CAP PO (12:25)
[2017-08-14] MEDS ORDERED: SODI44SP NAS (12:25)
[2017-08-14] MEDS ORDERED: DIGO250T PO (12:25)
[2017-08-14] MEDS ORDERED: ACID1TAB7 PO (12:25)
[2017-08-14] MEDS ORDERED: HYDR-3341 PO (12:25)
[2017-08-14] MEDS ORDERED: ISOS10TA2 PO (12:25)
[2017-08-14 14:17] VITALS: BP 146/84
== END 2017-08-14 17:50 | DRG 871 ==
LOC: CCU 18:03 → 5SO 08-05 16:45
PROVIDERS: ADMIT Internal Medicine; ATTEND Internal Medicine
DX: A41.9 Sepsis, unspecified organism (principal); E43 Unspecified severe protein-calorie malnutrition; J96.21 Acute and chronic respiratory failure with hypoxia; N17.0 Acute kidney failure with tubular necrosis; J18.1 Lobar pneumonia, unspecified organism; I50.33 Acute on chronic diastolic (congestive) heart failure; D68.59 Other primary thrombophilia; E87.1 Hypo-osmolality and hyponatremia; J44.0 Chronic obstructive pulmonary disease with (acute) lower respiratory infection; J44.1 Chronic obstructive pulmonary disease with (acute) exacerbation; D63.8 Anemia in other chronic diseases classified elsewhere; E78.5 Hyperlipidemia, unspecified; E83.42 Hypomagnesemia; E87.6 Hypokalemia; H91.90 Unspecified hearing loss, unspecified ear; I11.0 Hypertensive heart disease with heart failure; I48.2 Chronic atrial fibrillation; R13.10 Dysphagia, unspecified; K21.9 Gastro-esophageal reflux disease without esophagitis; Z66 Do not resuscitate; Z79.01 Long term (current) use of anticoagulants; Z79.899 Other long term (current) drug therapy; Z87.891 Personal history of nicotine dependence; Z90.13 Acquired absence of bilateral breasts and nipples; Z68.36 Body mass index [BMI] 36.0-36.9, adult
CPT/HCPCS: 36415; 36600; 71045; 74177; 74230; 80048; 80053; 80162; 81001; 82803; 83690; 83735; 83880; 84100; 84145; 84443; 84484; 85025; 87040; 87070; 87081; 87086; 87205; 87324; 93306; 94640; J0696; J2543; J3370; J7060; J7613; Q0162; Q9967; J1160; J1450; J1940; J3475; J7030; J7050

== ENCOUNTER 2018-09-11 01:11 | Inpatient (IN) | payer MEDICARE, MEDICAID ==
[~2018-09-11] VITALS: Ht 172.7 cm; Wt 80.6 kg
[~2018-09-11 01:11] MED LIST changes: +ACID1TAB7 PO; +AMLO-150 PO; -AMLO5TAB2 PO; +DIGO250T PO; -DIVA125C PO; +DIVA125C2 PO; +HYDR-3341 PO; +HYDR-826 PO; -HYDR25TA11 PO; +ISOS10TA2 PO; +LOPE2CAP PO; -NITR0.4T SL; +NITR0.4T41 SL; +SODI44SP NAS; -TRAZ50TA18 PO; +TRAZ50TA66 PO
--- NOTE | 2018-09-11 01:25 | NUR ---
PT BREIF CHANGED AND REPOSITIONED. PT ARRIVES VIA EMS + INCONTINENT OF STOOL.
--- NOTE | 2018-09-11 01:42 | NUR ---
CONTACT [facility] CART PLACED OUTSIDE ROOM D/T HX OF MRSA PER PAPERWORK.
--- NOTE | 2018-09-11 01:53 | NUR ---
HOSPITALIST AT THE BEDSIDE.
[2018-09-11] MEDS ORDERED: morphine SULFATE 10 MG/ML, 1ML IVPush PRN (02:00)
[2018-09-11] MEDS ORDERED: ONDANSETRON 2MG/ML, 2ML IVPush PRN (02:00)
[2018-09-11] MEDS ORDERED: DOCUSATE 100 MG CAPSULE PO PRN (02:00)
[2018-09-11] MEDS ORDERED: CYCLOBENZAPRINE 10 MG TABLET PO PRN (02:00)
[2018-09-11] MEDS ORDERED: ACETAMINOPHEN 325 MG TABLET PO PRN (02:00)
[2018-09-11] MEDS ORDERED: hydrALAzine 20 MG/ML, 1ML IVPush PRN (02:00)
[2018-09-11] MEDS ORDERED: GUAIFENESIN/COD200MG-20MG/10ML LIQUID PO PRN (02:00)
--- NOTE | 2018-09-11 02:03 | NUR ---
GAVE REPORT TO PRABHA SALMERON AND PT BEING TRANSPORTED.
[2018-09-11] MEDS ORDERED: LEVA15HF4 INH (02:14)
[2018-09-11] MEDS ORDERED: TRAZ-96 PO (02:14)
[2018-09-11] MEDS ORDERED: INSU100C SQ-INSULIN (02:14)
[2018-09-11] MEDS ORDERED: IPRA0.2S35 INH (02:14)
[2018-09-11] MEDS ORDERED: LOSA25TA25 PO (02:14)
[2018-09-11] MEDS ORDERED: MAGN400T50 PO (02:14)
[2018-09-11] MEDS ORDERED: ALBU2.5V11 NEB (02:14)
[2018-09-11] MEDS ORDERED: METO50TA82 PO (02:14)
[2018-09-11] MEDS ORDERED: HYDR20VI3 IV (02:14)
[2018-09-11] MEDS ORDERED: ALBUTEROL SULFATE 2.5 MG/3 ML ONE (02:16)
[2018-09-11] MEDS ORDERED: SODIUM CHLORIDE 0.9% 1,000 ML IV ONE (02:30)
[2018-09-11 02:54] VITALS: BP 122/64
[2018-09-11] MEDS ORDERED: ALBUTEROL SULFATE 2.5 MG/3 ML NPPB PRN (03:00)
[2018-09-11] MEDS: HYDROcodone/APAP 5/325 TABLET PO PRN ×2 (03:11→22:40)
[2018-09-11] MEDS: PANTOPROZOLE 40MG TABLET PO SCH (05:40)
[2018-09-11] MEDS: METOPROLOL TARTRATE 50 MG TABLET PO SCH ×2 (05:40→17:13)
[2018-09-11 05:45] LABS: INTERNATIONAL NORMALIZED RATIO 1.04 (0.93-1.1); PROTHROMBIN TIME 10.9 Seconds (9.6-11.5)
[2018-09-11 05:49] LABS: ANION GAP 10 mmol/L (5-15); CALCIUM 7.9 mg/dL (8.5-10.1); CHLORIDE 102 mmol/L (98-107); CREATININE 1.93 mg/dL (0.55-1.02)
[2018-09-11 06:00] LABS: BASOPHILS # (AUTO) 0.04 x10^3/uL (0-0.1); BASOPHILS % (AUTO) 0 % (0-1); EOSINOPHILS # (AUTO) 0.15 x10^3/uL (0-0.4); EOSINOPHILS % (AUTO) 1 % (1-7); LYMPHOCYTES # (AUTO) 2.56 x10^3/uL (1-3.4); LYMPHOCYTES % (AUTO) 24 % (22-44); MD NO; MEAN CORPUSCULAR HEMOGLOBIN 30.6 pg (27.0-34.8); MEAN CORPUSCULAR VOLUME 92.8 fL (80-100); MEAN PLATELET VOLUME 9.4 fL (7.4-10.4); MONOCYTES # (AUTO) 0.52 x10^3/uL (0.2-0.8); MONOCYTES % (AUTO) 5 % (2-9); NEUTROPHILS # (AUTO) 7.42 x10^3/uL (1.8-6.8); NEUTROPHILS % (AUTO) 69 % (42-75); PLATELET COUNT 239 x10^3/uL (130-400); RED BLOOD COUNT 3.94 x10^6/uL (3.82-5.3); RED CELL DISTRIBUTION WIDTH 14.2 % (9.6-15.2)
[2018-09-11] MEDS ORDERED: METOPROLOL TARTRATE 50 MG TABLET PO SCH (06:00)
[2018-09-11 06:55] LABS: HEMOGLOBIN A1C 9.6 % (4.2-6.3)
[2018-09-11] MEDS: INSULIN LISPRO 100 UNITS/ML, PEN SQ-INSULIN SCH ×4 (07:00→21:09)
[2018-09-11 07:53] VITALS: BP 102/67
[2018-09-11] MEDS: ALBUTEROL SULFATE 2.5 MG/3 ML NPPB SCH ×3 (08:45→19:39)
[2018-09-11] MEDS ORDERED: LOSARTAN 25MG TABLET PO SCH (09:00)
[2018-09-11] MEDS: MAGNESIUM OXIDE 400 MG TABLET PO SCH (09:55)
[2018-09-11] MEDS: DIGOXIN 0.25 MG TABLET PO SCH (09:55)
[2018-09-11] MEDS: LOSARTAN 50MG TABLET PO SCH ×2 (09:55→21:08)
[2018-09-11 12:58] VITALS: BP 120/75
[2018-09-11 21:07] VITALS: BP 141/64
[2018-09-11] MEDS: TRAZODONE 50MG TABLET PO SCH (22:40)
[2018-09-12 01:48] VITALS: BP 95/61
[2018-09-12 05:25] LABS: BASOPHILS # (AUTO) 0.03 x10^3/uL (0-0.1); BASOPHILS % (AUTO) 0 % (0-1); EOSINOPHILS # (AUTO) 0.19 x10^3/uL (0-0.4); EOSINOPHILS % (AUTO) 2 % (1-7); LYMPHOCYTES # (AUTO) 2.99 x10^3/uL (1-3.4); LYMPHOCYTES % (AUTO) 30 % (22-44); MD NO; MEAN CORPUSCULAR HGB CONC 33.5 g/dL (32.4-35.8); MEAN CORPUSCULAR VOLUME 92.4 fL (80-100); MEAN PLATELET VOLUME 9.3 fL (7.4-10.4); MONOCYTES # (AUTO) 0.49 x10^3/uL (0.2-0.8); MONOCYTES % (AUTO) 5 % (2-9); NEUTROPHILS # (AUTO) 6.33 x10^3/uL (1.8-6.8); NEUTROPHILS % (AUTO) 63 % (42-75); PLATELET COUNT 223 x10^3/uL (130-400); RED BLOOD COUNT 3.66 x10^6/uL (3.82-5.3); RED CELL DISTRIBUTION WIDTH 14.3 % (9.6-15.2)
[2018-09-12 05:38] LABS: ANION GAP 7 mmol/L (5-15); CALCIUM 7.7 mg/dL (8.5-10.1); CHLORIDE 109 mmol/L (98-107); CREATININE 1.92 mg/dL (0.55-1.02)
[2018-09-12] MEDS: PANTOPROZOLE 40MG TABLET PO SCH (05:40)
[2018-09-12] MEDS: METOPROLOL TARTRATE 50 MG TABLET PO SCH ×2 (05:40→17:18)
[2018-09-12] MEDS: INSULIN LISPRO 100 UNITS/ML, PEN SQ-INSULIN SCH ×4 (07:00→21:51)
[2018-09-12] MEDS ORDERED: SODIUM CHLORIDE 0.9% 1,000 ML IV SCH (07:30)
[2018-09-12 08:09] VITALS: BP 151/73
[2018-09-12] MEDS: ALBUTEROL SULFATE 2.5 MG/3 ML NPPB SCH ×3 (08:45→20:34)
[2018-09-12] MEDS: MAGNESIUM OXIDE 400 MG TABLET PO SCH (09:00)
[2018-09-12] MEDS: LOSARTAN 50MG TABLET PO SCH ×2 (09:00→21:51)
[2018-09-12] MEDS: DIGOXIN 0.25 MG TABLET PO SCH (09:00)
[2018-09-12] MEDS ORDERED: CIPROFLOXACIN 400MG/200ML PMX ONE (11:30)
[2018-09-12] MEDS ORDERED: FENTANYL PF 100 MCG/2ML ONE (11:34)
[2018-09-12] MEDS ORDERED: DEXAMETHASONE 4 MG/ML, 1ML ONE (11:58)
[2018-09-12] MEDS ORDERED: PROPOFOL 10 MG/ML, 20ML ONE (11:58)
[2018-09-12] MEDS ORDERED: CEFAZOLIN 1,000 MG ONE (11:58)
[2018-09-12] MEDS ORDERED: ONDANSETRON 2MG/ML, 2ML ONE (11:58)
[2018-09-12] MEDS ORDERED: FENTANYL PF 100 MCG/2ML IV PRN (12:00)
[2018-09-12] MEDS ORDERED: PROMETHAZINE 25 MG/ML, 1ML IV PRN (12:00)
[2018-09-12] MEDS ORDERED: ALBUTEROL SULFATE 2.5 MG/3 ML NPPB PRN (12:00)
[2018-09-12] MEDS ORDERED: hydrALAzine 20 MG/ML, 1ML IV PRN (12:00)
[2018-09-12] MEDS ORDERED: HALOPERIDOL 5 MG/ML IV PRN (12:00)
[2018-09-12] MEDS ORDERED: OXYcodone 5 MG/5 ML ORAL.SOL UDC PO PRN (12:00)
[2018-09-12] MEDS ORDERED: LABETALOL 5MG/ML, 20ML IV PRN (12:00)
[2018-09-12] MEDS ORDERED: HYDROmorphone 2 MG/ML, 1ML IVPush PRN (12:00)
[2018-09-12 13:33] VITALS: BP 126/63
[2018-09-12 19:48] VITALS: BP 122/67
[2018-09-12] MEDS: TRAZODONE 50MG TABLET PO SCH (21:51)
[2018-09-13 03:09] VITALS: BP 121/64
[2018-09-13] MEDS: PANTOPROZOLE 40MG TABLET PO SCH (06:07)
[2018-09-13] MEDS: METOPROLOL TARTRATE 50 MG TABLET PO SCH (06:08)
[2018-09-13] MEDS: LOSARTAN 50MG TABLET PO SCH (08:25)
[2018-09-13] MEDS: DIGOXIN 0.25 MG TABLET PO SCH (08:25)
[2018-09-13] MEDS: MAGNESIUM OXIDE 400 MG TABLET PO SCH (08:25)
[2018-09-13] MEDS: INSULIN LISPRO 100 UNITS/ML, PEN SQ-INSULIN SCH ×2 (08:26→12:14)
[2018-09-13] MEDS: ALBUTEROL SULFATE 2.5 MG/3 ML NPPB SCH (09:25)
[2018-09-13] MEDS ORDERED: DIGO250T PO (13:48)
[2018-09-13 15:01] VITALS: BP 124/71
== END 2018-09-13 17:36 | DRG 694 ==
LOC: ED 01:51 → EDIP 01:55 → 3NE 02:05
PROVIDERS: ADMIT Internal Medicine; ATTEND Internal Medicine
PROC: 0TJ98ZZ Inspection of Ureter, Via Natural or Artificial Opening Endoscopic (ICD-10-PCS; 2018-09-12)
PROC: 0TCB8ZZ Extirpation of Matter from Bladder, Via Natural or Artificial Opening Endoscopic (ICD-10-PCS; principal; 2018-09-12 11:00)
DX: N13.2 Hydronephrosis with renal and ureteral calculous obstruction (principal); I13.0 Hypertensive heart and chronic kidney disease with heart failure and stage 1 through stage 4 chronic kidney disease, or unspecified chronic kidney disease; D68.69 Other thrombophilia; I50.32 Chronic diastolic (congestive) heart failure; N21.0 Calculus in bladder; D72.829 Elevated white blood cell count, unspecified; E03.9 Hypothyroidism, unspecified; E11.22 Type 2 diabetes mellitus with diabetic chronic kidney disease; F03.90 Unspecified dementia, unspecified severity, without behavioral disturbance, psychotic disturbance, mood disturbance, and anxiety; I48.2 Chronic atrial fibrillation; K21.9 Gastro-esophageal reflux disease without esophagitis; N18.9 Chronic kidney disease, unspecified; Z66 Do not resuscitate; Z79.01 Long term (current) use of anticoagulants; Z90.13 Acquired absence of bilateral breasts and nipples; Z90.710 Acquired absence of both cervix and uterus
CPT/HCPCS: 36415; 80048; 80162; 82360; 82962; 83036; 83735; 85025; 85610; 88300; 94640; 99285; G0378; J0690; J0744; J1100; J2405; J2704; J3010; J7613; J1815; J7030